=== PATIENT | female | born 1960 | race Caucasian/White ===

== ENCOUNTER → 2020-05-24 | Outpatient (CLI) | payer SELFPAY ==
--- NOTE | 2020-05-26 08:58 | MM ---
Reason for exam: screening (asymptomatic). Last mammogram was performed 5 years and 1 month ago. History: Patient is postmenopausal and had first child at age 33. Took hormonal contraceptives for 10 years. Physical Findings: A clinical breast exam by your physician is recommended on an annual basis and results should be correlated with mammographic findings. MG Screening Mammo w CAD Bilateral CC and MLO view(s) were taken. Prior study comparison: April 25, 2015, bilateral MG screening mammo w CAD. November 12, 2010, bilateral digital screening mammogram. There are scattered fibroglandular densities. Possible developing 4mm mass anterior right breast. No MLO correlate. Otherwise, no significant change. ASSESSMENT: Incomplete: need additional imaging evaluation, BI-RAD 0 RECOMMENDATION: Special view mammogram of the right breast. (3D) If lesion persists on supplemental views, image directed ultrasound is recommended. [facility] will attempt to contact patient to return for supplemental views and ultrasound if indicated.
== END | disposition home or self-care (01) ==
LOC: RADMAMWWP 13:27
PROVIDERS: ATTEND Family Medicine
DX: Z12.31 Encounter for screening mammogram for malignant neoplasm of breast (principal)
CPT/HCPCS: 77067

== ENCOUNTER → 2021-02-12 | Outpatient (CLI) | payer SELFPAY ==
--- NOTE | 2021-02-13 12:04 | MM ---
Reason for exam: follow-up at short interval from prior study. Last mammogram was performed 8 months ago. History: Patient is postmenopausal and had first child at age 33. Took hormonal contraceptives for 10 years. Physical Findings: Nurse did not find any significant physical abnormalities on exam. MG Diagnostic Mammo RT w CAD CC and MLO view(s) were taken of the right breast. Prior study comparison: June 02, 2020, right breast MG work up mamm w CAD RT. May 24, 2020, bilateral MG screening mammo w CAD. There are scattered fibroglandular densities. Previous central medial asymmetric density no longer seen. Central lateral asymmetric density disperses on additional views. No significant new findings when compared with previous films. These results were verbally communicated with the patient and result sheet given to the patient on 02/12/21. ASSESSMENT: Negative, BI-RAD 1 RECOMMENDATION: Return to routine screening mammogram schedule for both breasts. Back on schedule.
== END | disposition home or self-care (01) ==
LOC: RADMAMWWP 12:53
PROVIDERS: ATTEND Family Medicine
DX: Z78.0 Asymptomatic menopausal state (principal)
CPT/HCPCS: 77065

== ENCOUNTER → 2022-04-19 | Outpatient (CLI) | payer BC ==
--- NOTE | 2022-04-22 09:08 | MM ---
Reason for Exam: Screening (asymptomatic). Last mammogram was performed 1 year(s) and 11 month(s) ago. Patient History: Menarche at age 11. First Full-Term at age 33. Late child-bearing (after 29). Postmenopausal. Patient used Hormonal Contraceptives for 10 years. Risk Values: Nyasia 5 year model risk: 2.1%. NCI Lifetime model risk: 9.4%. Prior Study Comparison: 05/24/2020 Bilateral Screening Mammogram, [facility]. 06/02/2020 Right Diagnostic Mammogram, [facility]. 02/12/2021 Right Diagnostic Mammogram, [facility]. Tissue Density: The breast tissue is heterogeneously dense. This may lower the sensitivity of mammography. Findings: Analyzed By CAD. There is no suspicious group of microcalcifications or new suspicious mass in either breast. Overall Assessment: Negative, BI-RAD 1 Management: Screening Mammogram of both breasts in 1 year. A clinical breast exam by your physician is recommended on an annual basis and results should be correlated with mammographic findings. Electronically signed and approved by: Peyman Cheung M.D. Radiologis
--- NOTE | 2022-04-22 11:51 | BD ---
EXAMINATION TYPE: Axial Bone Density DATE OF EXAM: 04/19/2022 COMPARISON: 11/12/2010 CLINICAL HISTORY: 61 years year old Female. ICD-10 CODE: Z78.0 Asymptomatic menopausal state Height: 66 IN Weight: 149 LBS FRAX RISK QUESTIONS: Secondary Osteoporosis: 3. Menopause before 45: AGE 35 RISK FACTORS HISTORY OF: Active: YES Postmenopausal woman: AGE 35 MEDICATIONS: Additional Medications: BLOOD PRESSURE MEDS EXAM MEASUREMENTS: Bone mineral densitometry was performed using the [employer]. Bone mineral density as measured about the Lumbar spine is: ----- L1-L4(G/cm2): 1.199 T Score Values are as follows: ----- L1: -2.0 ----- L2: 0.1 ----- L3: 0.9 ----- L4: 1.0 ----- L1-L4: 0.2 Bone mineral density has: Increased 7.6% since study of: 11/12/2010 Bone mineral density about the R hip (g/cm2): 0.812 Bone mineral density about the L hip (g/cm2): 0.786 T Score values are as follows: -----R Neck: -1.6 -----L Neck: -1.8 -----R Total: -1.4 -----L Total: -2.1 Bone mineral density has: Decreased -18.0% since study of: 11/12/2010 FRAX%s: The graph provided illustrates a chance for a major osteoporotic fx and a chance for the hips probability for fx in 10 years time. IMPRESSION: Osteopenia bilateral femora NOTE: T-SCORE=SD OF THE YOUNG ADULT MEAN.
== END | disposition home or self-care (01) ==
LOC: RADMAMWWP 15:29
PROVIDERS: ATTEND Family Medicine
DX: Z12.31 Encounter for screening mammogram for malignant neoplasm of breast (principal); M85.89 Other specified disorders of bone density and structure, multiple sites; Z78.0 Asymptomatic menopausal state
CPT/HCPCS: 77067; 77080